=== PATIENT | female | born 1990 | race Caucasian/White ===

== ENCOUNTER → 2018-09-06 | Outpatient (CLI) | payer SELFPAY ==
--- NOTE | 2018-09-06 14:58 | RADIOLOGY REPORT (SQ) ---
EXAM DESCRIPTION: U/S [id number] TRNABD 1GES W/ODOP COMPLETED DATE/TIME: 09/06/2018 2:43 pm REASON FOR STUDY: ENCTR FOR SUPERVISION OF OTHER NORMAL , 1ST TRIMESTER (Z34.81) Z34.81 EN COUNTER FOR SUPRVSN OF NORMAL , FIRST TRIM COMPARISON: None. TECHNIQUE: TRANSABDOMINAL static and realtime grayscale images acquired of the pelvis. Additional se lected spectral and color Doppler images recorded. All images stored on PACs. bHCG: Not available CLINICAL DATES: None available LIMITATIONS: None. FINDINGS: FETUS: Single Living intrauterine . ULTRASOUND EGA: 9 weeks 5 days ULTRASOUND AYDE: 04/06/2019 EFW: Not applicable less than 20 weeks. CRL: 2.9 cm FHR: 178 beats per minute. SURVEY: Too early to assess. AMNIOTIC FLUID: Adequate amount. PLACENTA: Not yet developed due to early gestation. SUBCHORIONIC BLEED: No. SIZE OF BLEED: Not applicable. UTERUS: No masses. No anomalies. Uterus is 14 x 8 x 6 cm in size CERVICAL LENGTH: 3.8 cm Closed. RIGHT ADNEXA: Normal ovary with normal vascular flow. Right ovary 3.1 x 3.6 x 2.1 cm in size with a 1.5 cm simple cyst. No adnexal free fluid.No adnexal masses. LEFT ADNEXA: Not visualized due to adnexal bowel gas FREE FLUID: None. OTHER: No other significant finding. IMPRESSION: LIVING INTRAUTERINE . EGA 9 weeks 5 days Trimester of : First - 0 to 13 weeks. TECHNICAL DOCUMENTATION: JOB ID: [id number] [email or web address]- All Rights Reserved rev Reading location - IP/workstation name: [email or web address]-
== END ==
LOC: RAD 13:34
PROVIDERS: ATTEND Midwife
DX: Z34.81 Encounter for supervision of other normal pregnancy, first trimester (principal)
CPT/HCPCS: 76801

== ENCOUNTER → 2018-11-03 | Outpatient (CLI) | payer MEDICAID | LOC: LAB 12:34 | PROVIDERS: ATTEND Nurse Practitioner Family | DX: J02.9 Acute pharyngitis, unspecified (principal) | CPT/HCPCS: 87070 ==

== ENCOUNTER 2019-04-02 05:09 | Inpatient (IN) | payer MEDICAID ==
[2019-04-01 11:33] LABS: ABSOLUTE EOSINOPHILS # (AUTO) 0.1 10^3/uL (0.0-0.6); ABSOLUTE LYMPHOCYTES (AUTO) 1.4 10^3/uL (0.5-4.7); ABSOLUTE MONOCYTES (AUTO) 0.6 10^3/uL (0.1-1.4); BASOPHILS % (AUTO) 0.5 % (0-2); EOSINOPHILS % (AUTO) 1.6 % (0-6); HEMATOCRIT 30.7 % (36.0-47.0); HEMOGLOBIN 10.1 g/dL (12.0-15.5); MEAN CORPUSCULAR HEMOGLOBIN 24.5 pg (27.0-33.4); MEAN CORPUSCULAR HGB CONC 32.9 g/dL (32.0-36.0); MEAN CORPUSCULAR VOLUME 75 fl (80-97); MONOCYTES % (AUTO) 6.3 % (3-13); PLATELET COUNT 177 10^3/uL (150-450); RED BLOOD COUNT 4.13 10^6/uL (3.72-5.28); RED CELL DISTRIBUTION WIDTH 18.9 % (11.5-14.0); SEGMENTED NEUTROPHILS % (AUTO) 76.6 % (42-78); TOTAL CELLS COUNTED % (AUTO) 100 %; WHITE BLOOD COUNT 9.2 10^3/uL (4.0-10.5)
[2019-04-01 12:17] LABS: APPEARANCE,URINE CLEAR; BILIRUBIN,URINE NEGATIVE (NEGATIVE); COLOR,URINE YELLOW; GLUCOSE, URINE NEGATIVE (NEGATIVE); KETONES,URINE 20 mg/dL (NEGATIVE); LEUKOCYTE ESTERASE,URINE NEGATIVE (NEGATIVE); NITRITE,URINE NEGATIVE (NEGATIVE); PROTEIN,URINE NEGATIVE (NEGATIVE); URINE SPECIFIC GRAVITY 1.006; UROBILINOGEN,URINE NEGATIVE mg/dL (<2.0)
[2019-04-01 12:39] LABS: URINE AMPHETAMINES SCREEN NEGATIVE; URINE BARBITURATES SCREEN NEGATIVE; URINE BENZODIAZEPINES SCREEN NEGATIVE; URINE COCAINE SCREEN NEGATIVE; URINE MARIJUANA (THC) SCREEN NEGATIVE; URINE METHADONE SCREEN NEGATIVE; URINE PHENCYCLIDINE SCREEN NEGATIVE
[~2019-04-02 05:09] MED LIST: CEFAZOLIN SODIUM 2 GM in DEXTROSE 5%-WATER 100 ML IV PRN; LACTATED RINGERS 1000 ML IV PRN; LIDOCAINE 0.5% INJ-PF (5 MG/ML) 50 ML SDV SUBCUT PRN
[2019-04-02] MEDS ORDERED: INFLUENZA QUAD (6MOS+) 2019-20 VAC 0.5 ML SYR IM ONE (05:38)
[2019-04-02 06:04] LABS: INTERNATIONAL RATION (INR) 0.95; PROTHROMBIN TIME 12.7 SEC (11.4-15.4)
[2019-04-02] MEDS ORDERED: PHENYLEPHRINE HCL INJ/PF 10 MG/1 ML SDV ONE (07:19)
[2019-04-02] MEDS ORDERED: KETOROLAC TROMETHAMINE INJ/PF 30 MG/1 ML SDV ONE (07:19)
[2019-04-02] MEDS ORDERED: OXYTOCIN 10 UNIT/ML VIAL ONE (07:19)
[2019-04-02] MEDS ORDERED: FENTANYL CITRATE INJ/PF 100 MCG/2 ML AMPUL ONE (07:19)
[2019-04-02] MEDS ORDERED: ONDANSETRON HCL INJ/PF 4 MG/2 ML SDV ONE (07:20)
[2019-04-02] MEDS ORDERED: EPHEDRINE SULFATE INJ 50 MG/1 ML AMPULE ONE (07:20)
[2019-04-02] MEDS ORDERED: MIDAZOLAM 2 MG/2 ML INJ ONE (07:20)
[2019-04-02] MEDS ORDERED: ACETAMINOPHEN 1,000 MG/100 ML RTUPB IV ONE (07:20)
[2019-04-02] MEDS ORDERED: METHYLERGONOVINE MALEATE INJ/PF 0.2 MG/1 ML AMPULE ONE (07:20)
[2019-04-02] MEDS ORDERED: MEPERIDINE HCL/PF INJ 25 MG/1 ML DISP.SYRIN IV PRN (08:28)
[2019-04-02] MEDS ORDERED: ONDANSETRON HCL INJ/PF 4 MG/2 ML SDV IV PRN (08:28)
[2019-04-02] MEDS ORDERED: PROMETHAZINE HCL INJ 25 MG/1 ML VIAL IV PRN ×3 (08:28→08:52)
[2019-04-02] MEDS ORDERED: OXYCODONE-ACETAMINOPHEN 5-325 MG TABLET PO PRN ×3 (08:28→08:52)
[2019-04-02] MEDS ORDERED: DIPHENHYDRAMINE HCL 50 MG/ML VIAL IV PRN (08:28)
[2019-04-02] MEDS ORDERED: FENTANYL CITRATE INJ/PF 100 MCG/2 ML AMPUL IV PRN ×3 (08:28)
[2019-04-02] MEDS ORDERED: SIMETHICONE 80 MG TAB.CHEW PO PRN (08:52)
[2019-04-02] MEDS ORDERED: ACETAMINOPHEN 1,000 MG/100 ML RTUPB IV PRN (08:52)
[2019-04-02] MEDS ORDERED: ACETAMINOPHEN 325 MG TABLET PO PRN (08:52)
[2019-04-02] MEDS ORDERED: MORPHINE SULFATE 10 MG/ML INJ IV PRN (08:52)
[2019-04-02] MEDS ORDERED: MEASLES,MUMPS&RUBELLA VACC/PF 0.5 ML VIAL SUBCUT PRN (08:52)
[2019-04-02] MEDS ORDERED: DIPH/PERTUSS(ACELL)/TETANUS VAC/PF 0.5 ML SYR (>=10YO) IM PRN (08:52)
[2019-04-02] MEDS ORDERED: OXYTOCIN/NORMAL SALINE 20 UNIT/1,000 ML RTUINJ IV PRN (08:52)
--- NOTE | 2019-04-02 08:58 | Operative Report ---
Operative Report DATE OF SURGERY: 04/02/19 PREOPERATIVE DIAGNOSIS: IUP @ 39 3/7 wks, previous c/section, Class C DM, undes ired fertility POSTOPERATIVE DIAGNOSIS: same OPERATION: repeat low transverse hysterotomy section with [place] tubal ligation SURGEON: GLORIA LAWTON [employer] RESEARCH ENGINEER: DARIELA JONES ANESTHESIA: Spinal TISSUE REMOVED OR ALTERED: Bilateral fallopian tube segments COMPLICATIONS: None ESTIMATED BLOOD LOSS: 750 cc INTRAOPERATIVE FINDINGS: Female cephalic presentation with Apgars of 8 and 9 weight 9 pounds 12 ounces PROCEDURE: The patient was taken to the operating room, prepared and draped in anormal sterile fashion in a supine position with a leftward tilt. A transverse skin incision was made with a scalpel and carried through tothe underlying layer of fascia with the same scalpel. The fascia was excised in the midline and extended laterally with Adarsh. The fascia was then dissected from the rectus muscle sharply with Adarsh and the rectus muscle was divided and the peritoneal cavity was entered sharply with the same Metzenbaum. With good visualization of the bladder and the uterus the bladder blade was inserted. The hysterotomy was nicked with a scalpel and extended laterally with surgeon finger fraction. The infant was thendelivered atraumatically. The nose and mouth were suctioned with a suction bulb, the cord was clamped and cut and handed off to awaiting pediatricians. Cord blood was collected. The placenta was removed manually. The uterus was exteriorized and cleared of clots and debris. The hysterotomy was closed with 0 Monocryl in a running, locked fashion. A second layer of the same suture was used to imbricate to ensure hemostasis. Attention was then turned to the fallopian tubes where the right fallopian tube was grasped with a Ady, the mesosalpinx was divided with a Bovie. a 3-1/2 cm segment of fallopian tube was tied off with 2 pieces of 2-0 chromic.this segment was ligated using Metzenbaums and the pedicles were made hemostatic with the Bovie. This procedure was repeated on the left fallopian tube without difficulty. The uterus was returned to the abdomen and peritoneal cavity was cleared of clots and debris. The pedicles were inspected and they were still hemostatic. The rectus muscle and peritoneum were repaired with mattress stitch of 2-0 Chromic. The fascia was closed with 0-Vicryl. The subcutaneous layer was closed with plain catgut and the skin was closed with 4-0 Vicryl. The patient tolerated the procedure well. Sponge, lap, and needle counts correct x2 and the patient was taken to recovery in stable condition.
[2019-04-02] MEDS ORDERED: AMPICILLIN SOD/SULBACTAM 3 GM VIAL IV SCH (09:00)
[2019-04-02] MEDS ORDERED: INSULIN REG, HUMAN 100 UNIT/ML 3 ML VIAL (PYX) SUBCUT ONE (09:28)
[2019-04-02] MEDS ORDERED: MORPHINE SULFATE 10 MG/ML INJ ONE (09:52)
[2019-04-02] MEDS: MORPHINE SULFATE 10 MG/ML INJ IV PRN ×2 (09:55→10:15)
[2019-04-02] MEDS ORDERED: PROMETHAZINE HCL INJ 25 MG/1 ML VIAL ONE (10:01)
[2019-04-02] MEDS: DOCUSATE SODIUM 100 MG CAPSULE PO SCH ×2 (12:32→18:25)
[2019-04-02] MEDS: PRENATAL VITAMIN W DHA CAPSULE PO SCH (12:32)
[2019-04-02] MEDS: IBUPROFEN 800 MG TABLET PO SCH ×2 (12:33→18:36)
[2019-04-02] MEDS: KETOROLAC TROMETHAMINE INJ/PF 30 MG/1 ML SDV IV SCH ×2 (15:42→22:00)
[2019-04-03] MEDS: IBUPROFEN 800 MG TABLET PO SCH ×5 (01:33→23:32)
[2019-04-03] MEDS: OXYCODONE-ACETAMINOPHEN 5-325 MG TABLET PO PRN ×2 (05:47→22:38)
[2019-04-03] MEDS: KETOROLAC TROMETHAMINE INJ/PF 30 MG/1 ML SDV IV SCH ×3 (06:33→22:35)
[2019-04-03 07:39] LABS: HEMATOCRIT 29.6 % (36.0-47.0); HEMOGLOBIN 9.8 g/dL (12.0-15.5); MEAN CORPUSCULAR HEMOGLOBIN 24.9 pg (27.0-33.4); MEAN CORPUSCULAR HGB CONC 33.2 g/dL (32.0-36.0); MEAN CORPUSCULAR VOLUME 75 fl (80-97); PLATELET COUNT 181 10^3/uL (150-450); RED BLOOD COUNT 3.94 10^6/uL (3.72-5.28); RED CELL DISTRIBUTION WIDTH 19.3 % (11.5-14.0)
[2019-04-03] MEDS: DOCUSATE SODIUM 100 MG CAPSULE PO SCH ×2 (09:47→17:36)
[2019-04-03] MEDS: PRENATAL VITAMIN W DHA CAPSULE PO SCH (09:47)
--- NOTE | 2019-04-03 16:34 | PDOC PROGRESS REPORT ---
Subjective-OB Progress Note for:: 04/03/19 Subjective: reports bleeding slowing, pain controlled with current meds, denies needs. Physical Exam (OB) Vital Signs: Temp Pulse Resp BP Pulse Ox 97.8 F 81 16 105/70 98 04/03/19 15:05 04/03/19 15:05 04/03/19 15:05 04/03/19 15:05 04/03/19 15:05 Intake & Output 04/02/19 04/03/19 04/04/19 06:59 06:59 06:59 Intake Total 1840 Output Total 4425 Balance -2585 Weight 76.2 kg - Dressing Removed: No Incision: Dressing Closure Type: Opsite - Bilateral Tubal Ligation Dressing Removed: No - Abdomen Description: Tender, Soft Hernia Present: No Fundal Description: Firm, Midline Fundal Height: u/u - u/2 - Abdominal Distension: No distension - Extremities Lower extremities: Melinda's sign - neg Calf: Normal, Nontender Objective-Diagnostic Laboratory: 04/03/19 06:36 04/03/19 06:36 WBC 8.0 RBC 3.94 Hgb 9.8 L Hct 29.6 L MCV 75 L MCH 24.9 L MCHC 33.2 RDW 19.3 H Plt Count 181 Assessment and Plan(PN) - Time Spent with Patient Time with patient: Less than 15 minutes Medications reviewed and adjusted accordingly: Yes - Disposition Anticipated Discharge: Home Within: within 48 hours
[2019-04-04] MEDS: IBUPROFEN 800 MG TABLET PO SCH ×2 (06:57→11:13)
[2019-04-04] MEDS: KETOROLAC TROMETHAMINE INJ/PF 30 MG/1 ML SDV IV SCH (08:05)
[2019-04-04 08:09] VITALS: BP 107/70
--- NOTE | 2019-04-04 08:58 | PDOC PROGRESS REPORT ---
Subjective-OB Progress Note for:: 04/04/19 Subjective: Doing well, no c/o, passing gas, walking in halls, , diet taken well, voiding, ready to go home Physical Exam (OB) Vital Signs: Temp Pulse Resp BP Pulse Ox 98.0 F 77 16 107/70 100 04/04/19 08:00 04/04/19 08:00 04/04/19 08:00 04/04/19 08:00 04/04/19 08:00 Intake & Output 04/03/19 04/04/19 04/05/19 06:59 06:59 06:59 Intake Total 1840 2100 Output Total 4425 Balance -2585 2100 Weight 72.4 kg - PIH/Pre-Eclampsia Clonus: Negative Headache: Absent Epigastric Pain: No Visual Changes: No - Dressing Removed: No - opsite, small drain,dry Incision: Dressing Closure Type: Opsite - Bilateral Tubal Ligation Dressing Removed: No - Lochia Lochia Amount: Small 10-25 ml Lochia Color: Rubra/Red - Abdomen Description: Soft, Round Hernia Present: No Fundal Description: Firm, Midline Fundal Height: u/u - u/2 Objective-Diagnostic Laboratory: 04/03/19 06:36 Assessment and Plan(PN) - Assessment and Plan (1) Status post repeat low transverse section Is this a current diagnosis for this admission?: Yes (2) Type 1 diabetes Qualifiers: Diabetes mellitus complication status: without complication Qualified Code(s): E10.9 - Type 1 diabetes mellitus without complications Is this a current diagnosis for this admission?: Yes (3) Anemia Qualifiers: Anemia type: iron deficiency Is this a current diagnosis for this admission?: Yes - Time Spent with Patient Time with patient: Less than 15 minutes Medications reviewed and adjusted accordingly: Yes - Disposition Anticipated Discharge: Home Within: within 24 hours
--- NOTE | 2019-04-04 09:06 | PDOC DISCHARGE SUMMARY ---
Impression - Admit/DC Date/PCP Admission Date/Primary Care Provider: 04/02/19 05:09 GLORIA LAWTON MD Discharge Date: 04/04/19 - Discharge Diagnosis (1) Status post repeat low transverse section Is this a current diagnosis for this admission?: Yes (2) Type 1 diabetes Is this a current diagnosis for this admission?: Yes (3) Anemia Is this a current diagnosis for this admission?: Yes - Additional Information Resuscitation Status: Full Code Discharge Diet: As Tolerated, Regular Discharge Activity: Activity As Tolerated, Balance Activity w/Rest, No Lifting Over 10 Pounds, No Lifting/Push/Pulling, Pelvic Rest Referrals: [facility] [Provider Group] (wha 1 week) Prescriptions: Oxycodone HCl/Acetaminophen [Percocet 5-325 mg Tablet] 1 tab PO Q4HP PRN #20 tab let PRN Reason: Ibuprofen [Motrin 800 mg Tablet] 800 mg PO Q6 #30 tablet Home Medications: No.137/Iron/Folic Acd [ Vitamin Tablet] 1 each PO DAILY Insulin Aspart [Novolog Insulin (Aspart) 100 unit/mL] 1 unit SUBCUT AC 03/27/14 Glucagon [Gvoke Syringe] 1 mg SQ 04/01/19 Iron,Carb/Vit C/Vit B12/Folic [Iron 100 Plus Tablet] 1 each PO DAILY 04/01/19 Ibuprofen [Motrin 800 mg Tablet] 800 mg PO Q6 #30 tablet 04/04/19 Oxycodone HCl/Acetaminophen [Percocet 5-325 mg Tablet] 1 tab PO Q4HP PRN #20 tablet 04/04/19 HPI Gestational Age: 39 Reason(s) for Admission: Ceasarean Section-Repeat, Medical Complications Admission Note: Type 1 diabetes Procedures: NST, Ultrasound Intrapartum Procedure(s): : Low Cervical, Transverse - d/c home, pt aware of Insulin pump and doasage, f/u with Dr. Thorne office Hospital Course Hospital Course: routine Results Laboratory Results: WBC 8.0 10^3/uL (4.0-10.5) 04/03/19 06:36 RBC 3.94 10^6/uL (3.72-5.28) 04/03/19 06:36 Hgb 9.8 g/dL (12.0-15.5) L 04/03/19 06:36 Hct 29.6 % (36.0-47.0) L 04/03/19 06:36 MCV 75 fl (80-97) L 04/03/19 06:36 MCH 24.9 pg (27.0-33.4) L 04/03/19 06:36 MCHC 33.2 g/dL (32.0-36.0) 04/03/19 06:36 RDW 19.3 % (11.5-14.0) H 04/03/19 06:36 Plt Count 181 10^3/uL (150-450) 04/03/19 06:36 Lymph % (Auto) 15.0 % (13-45) 04/01/19 10:58 [place] % (Auto) 6.3 % (3-13) 04/01/19 10:58 Eos % (Auto) 1.6 % (0-6) 04/01/19 10:58 Baso % (Auto) 0.5 % (0-2) 04/01/19 10:58 Absolute Neuts (auto) 7.0 10^3/uL (1.7-8.2) 04/01/19 10:58 Absolute Lymphs (auto) 1.4 10^3/uL (0.5-4.7) 04/01/19 10:58 Absolute Monos (auto) 0.6 10^3/uL (0.1-1.4) 04/01/19 10:58 Absolute Eos (auto) 0.1 10^3/uL (0.0-0.6) 04/01/19 10:58 Absolute Basos (auto) 0.0 10^3/uL (0.0-0.2) 04/01/19 10:58 Seg Neutrophils % 76.6 % (42-78) 04/01/19 10:58 PT 12.7 SEC (11.4-15.4) 04/02/19 05:44 INR 0.95 04/02/19 05:44 POC Glucose 214 mg/dL (70-110) H 04/02/19 11:42 Urine Color YELLOW 04/01/19 10:49 Urine Appearance CLEAR 04/01/19 10:49 Urine pH 6.0 (5.0-9.0) 04/01/19 10:49 Ur Specific [place] 1.006 04/01/19 10:49 Urine Protein NEGATIVE mg/dL (NEGATIVE) 04/01/19 10:49 Urine Glucose (UA) NEGATIVE mg/dL (NEGATIVE) 04/01/19 10:49 Urine Ketones 20 mg/dL (NEGATIVE) H 04/01/19 10:49 Urine Blood NEGATIVE (NEGATIVE) 04/01/19 10:49 Urine Nitrite NEGATIVE (NEGATIVE) 04/01/19 10:49 Urine Bilirubin NEGATIVE (NEGATIVE) 04/01/19 10:49 Urine Urobilinogen NEGATIVE mg/dL (<2.0) 04/01/19 10:49 Ur Leukocyte Esterase NEGATIVE (NEGATIVE) 04/01/19 10:49 Urine WBC (Auto) 1 /HPF 04/01/19 10:49 Urine RBC (Auto) 0 /HPF 04/01/19 10:49 Urine Bacteria (Auto) 1+ /HPF 04/01/19 10:49 Squamous Epi Cells Auto 6 /HPF 04/01/19 10:49 Urine Mucus (Auto) RARE /LPF 04/01/19 10:49 Urine Ascorbic Acid NEGATIVE (NEGATIVE) 04/01/19 10:49 Urine Opiates Screen NEGATIVE 04/01/19 10:49 Urine Methadone Screen NEGATIVE 04/01/19 10:49 Ur Barbiturates Screen NEGATIVE 04/01/19 10:49 Ur Phencyclidine Scrn NEGATIVE 04/01/19 10:49 Ur Amphetamines Screen NEGATIVE 04/01/19 10:49 U Benzodiazepines Scrn NEGATIVE 04/01/19 10:49 Urine Cocaine Screen NEGATIVE 04/01/19 10:49 U Marijuana (THC) Screen NEGATIVE 04/01/19 10:49 Blood Type O POSITIVE 04/01/19 10:58 Antibody Screen NEGATIVE 04/01/19 10:58 Plan Health Concerns: Diabetes/Insulin pump, infection Plan of Treatment: home, continue Insulin pump, Percocet and Motrin for pain Goals: no complications, stable blood sugars Time Spent: Less than 30 Minutes
[2019-04-04] MEDS: DOCUSATE SODIUM 100 MG CAPSULE PO SCH (10:10)
[2019-04-04] MEDS: PRENATAL VITAMIN W DHA CAPSULE PO SCH (10:10)
== END 2019-04-04 11:56 | disposition home or self-care (01) | DRG 785 ==
LOC: 2S 05:09
PROVIDERS: ADMIT Obstetrics & Gynecology; ATTEND Obstetrics & Gynecology
PROC: 0UB70ZZ Excision of Bilateral Fallopian Tubes, Open Approach (ICD-10-PCS; 2019-04-02)
PROC: 10D00Z1 Extraction of Products of Conception, Low, Open Approach (ICD-10-PCS; principal; 2019-04-02 07:45)
PROC: 3E02340 Introduction of Influenza Vaccine into Muscle, Percutaneous Approach (ICD-10-PCS; 2019-04-04)
DX: O24.02 Pre-existing type 1 diabetes mellitus, in childbirth (principal); Z30.2 Encounter for sterilization; O34.211 Maternal care for low transverse scar from previous cesarean delivery; Z96.41 Presence of insulin pump (external) (internal); E10.9 Type 1 diabetes mellitus without complications; D50.9 Iron deficiency anemia, unspecified; Z3A.39 39 weeks gestation of pregnancy; Z37.0 Single live birth; O99.02 Anemia complicating childbirth; Z23 Encounter for immunization
CPT/HCPCS: 1961; 36415; 80307; 81001; 82962; 85025; 85027; 85610; 86850; 86900; 86901; 88302; 90686; 94760; 94799; J0131; J0690; J1815; J1885; J2210; J2250; J2270; J2370; J2405; J2550; J2590; J3010; J3490; J7060; J7120